=== PATIENT | female | born 1995 | race Caucasian/White ===

== ENCOUNTER 2022-06-21 13:58 | Inpatient (IN) ==
[2022-06-21 15:16] LABS: ABS Lymphocytes 2.2 10^3/ul (1.0-4.8); ABS Monocytes 0.4 10^3/ul (0-0.8); ABS Neutrophils 8.1 10^3/ul (1.5-7.7); Eosinophil % 0.2 %; Hematocrit 36 % (35-47); Hemoglobin 11.8 g/dL (12.0-16.0); Lymphocyte % 20.2 %; Mean Corpuscular HGB Conc 33 g/dL (31-36); Mean Corpuscular Hemoglobin 27 pg (27-31); Mean Corpuscular Volume 80 fL (80-97); Mean Platelet Volume 10.4 fL (7.4-10.4); Platelet Count 178 10^3/uL (150-450); Red Blood Count 4.45 10^6 /uL (3.70-4.87); Red Cell Distribution Width 15 % (10-15); White Blood Count 10.8 10^3/uL (3.5-10.8)
[2022-06-21 15:19] LABS: Urine Appearance Cloudy; Urine Bilirubin Negative (Negative); Urine Blood 3+ (Negative); Urine Color Yellow; Urine Glucose Negative (Negative); Urine Ketones Negative (Negative); Urine Nitrite Negative (Negative); Urine Protein Negative (Negative); Urine Specific Gravity 1.013 (1.002-1.030); Urine Urobilinogen Negative (Negative)
[2022-06-21 15:21] LABS: Urine Bacteria 2+ (Absent); Urine Red Blood Cell 3+(>10/hpf) (Absent); Urine Squamous Epithelial Cell Present (Absent); Urine White Blood Cell 2+(11-20/hpf) (Absent)
[2022-06-21 15:45] LABS: Urine Benzodiazepine Screen None Detected (None Detect); Urine Cannabinoids Screen None Detected (None Detect); Urine Opiates Screen None Detected (None Detect)
[2022-06-21 15:52] LABS: Albumin 3.3 g/dL (3.2-5.2); Albumin/Globulin Ratio 1.3 (1-3); Calcium 8.7 mg/dL (8.6-10.3); Creatinine, Serum 0.59 mg/dL (0.51-0.95); Globulin 2.6 g/dL (2-4); Potassium 3.8 mmol/L (3.5-5.0); Total Bilirubin 0.3 mg/dL (0.2-1.0); Total Protein 5.9 g/dL (6.4-8.9); Uric Acid 6.5 mg/dL (2.3-6.6); eGFR CKD-EPI 126.6 (>60)
[2022-06-21] MEDS ORDERED: Dinoprostone 10 MG VAG.SUPP VAGINAL ONE (16:14)
[2022-06-22] MEDS: Lactated Ringers 1000 ml BAG 1,000 ML IV SCH ×2 (10:15→19:39)
[2022-06-22] MEDS: Oxytocin in LR 20,000 MILLI.UNIT/1,000 ML BAG IV SCH (10:16)
[2022-06-22] MEDS ORDERED: Lidocaine 1% w EPI 1:200,000 SDV 30 ML VIAL ONE (18:45)
[2022-06-22] MEDS ORDERED: OBEPIDURAL (200 ML) 200 ML EPIDURAL ONE (18:45)
[2022-06-22] MEDS ORDERED: Lactated Ringers 1000 ml BAG 1,000 ML IV ONE ×2 (18:53→19:53)
[2022-06-22] MEDS ORDERED: Sodium Citrate/Citric Acid LIQ 15 ML UDC PO PRN (19:53)
[2022-06-22] MEDS ORDERED: Phenylephrine 40 mcg/mL 10mL (400mcg) SYRINGE IV PUSH PRN ×2 (19:53)
[2022-06-22] MEDS ORDERED: OBEPIDURAL (200 ML) 200 ML EPIDURAL SCH (20:00)
[2022-06-22] MEDS ORDERED: Lactated Ringers 1000 ml BAG 1,000 ML IV SCH (20:00)
[2022-06-23] MEDS: Lactated Ringers 1000 ml BAG 1,000 ML IV SCH ×2 (00:14→09:15)
[2022-06-23] MEDS ORDERED: Calcium Carb (TUMS) 500 mg CHEW TAB PO ONE (03:09)
[2022-06-23] MEDS: Oxytocin in LR 20,000 MILLI.UNIT/1,000 ML BAG IV SCH (07:33)
[2022-06-23] MEDS ORDERED: Witch Hazel PAD JAR TOPICAL PRN (12:34)
[2022-06-23] MEDS ORDERED: Lactated Ringers 1000 ml BAG 1,000 ML IV SCH (13:00)
[2022-06-23] MEDS: Dibucaine 1% OINT 28.35 GM TUBE PR PRN (13:23)
[2022-06-23] MEDS ORDERED: Lidocaine 1% VIAL 10 MG/ML VIAL 30 ML ONE (15:41)
[2022-06-24 06:26] LABS: ABS Eosinophils 0.1 10^3/ul (0-0.6); ABS Lymphocytes 2.6 10^3/ul (1.0-4.8); ABS Monocytes 0.6 10^3/ul (0-0.8); ABS Neutrophils 9.1 10^3/ul (1.5-7.7); Eosinophil % 0.9 %; Hematocrit 29 % (35-47); Hemoglobin 9.4 g/dL (12.0-16.0); Lymphocyte % 20.9 %; Mean Corpuscular HGB Conc 32 g/dL (31-36); Mean Corpuscular Hemoglobin 26 pg (27-31); Mean Corpuscular Volume 81 fL (80-97); Mean Platelet Volume 9.7 fL (7.4-10.4); Platelet Count 138 10^3/uL (150-450); Red Cell Distribution Width 15 % (10-15); White Blood Count 12.4 10^3/uL (3.5-10.8)
[2022-06-24 19:37] VITALS: BP 135/80
[2022-06-25] MEDS: Dibucaine 1% OINT 28.35 GM TUBE PR PRN (09:04)
== END 2022-06-25 11:40 | disposition home or self-care (01) | DRG 560 ==
LOC: MCHOBOUT 13:58 → MCHOB 15:22
PROVIDERS: ADMIT Midwife; ATTEND Midwife